=== PATIENT | female | born 1960 | race Caucasian/White ===

== ENCOUNTER 2018-07-28 00:18 | Inpatient (IN) ==
[2018-07-28 02:26] LABS: BASO# 0.03 X1000 (0.0-0.2); BASO% 0.4 % (0.0-0.8); EOS# 0.16 X1000 (0.0-0.7); HEMATOCRIT 40.3 % (37.0-47.0); HEMOGLOBIN 14.1 g/dL (12.0-16.0); LYMPH# 4.33 X1000 (1.2-3.4); LYMPH% 54.2 % (20.5-51.1); MCH 28.2 PG (27-31); MCV 80.6 FL (81-99); MONO# 0.39 X1000 (0.11-0.59); MONO% 4.9 % (1.7-9.3); MPV 11.2 FL (7.4-10.4); NEUT# 3.08 X1000 (1.4-6.5); NEUT% 38.5 % (42.2-75.2); PLT 233 X1000 (130-400); RDW 13.5 % (11.5-14.5); WBC 7.99 X1000 (4.8-10.8)
[2018-07-28 02:41] LABS: PROTIME 11.7 Seconds (11.0-16.0)
[2018-07-28 02:42] LABS: PTT 27.1 Seconds (22.3-41.8)
[2018-07-28 02:51] LABS: INR 0.8
[2018-07-28 02:53] LABS: AGAP 14; ALB/GLOB RATIO 1.5; ALBUMIN 4.4 g/dL (3.5-5.0); ALKALINE PHOSPHATASE 90 U/L (32-104); BUN 13 mg/dL (8-22); CHLORIDE 97 mmol/L (98-107); COSMO 292; CREATININE 0.7 mg/dL (0.5-0.9); ESTIMATED GFR > 60; GLUCOSE 383 mg/dL (70-104); GOT 14 U/L (10-30); GPT 15 U/L (10-36); POTASSIUM 3.9 mmol/L (3.5-5.1); SODIUM 138 mmol/L (136-145); TCO2 27 mmol/L (25-35); TOTAL BILIRUBIN 0.16 mg/dL (0.20-1.00); TOTAL PROTEIN 7.3 g/dL (6.3-8.3)
--- NOTE | 2018-07-28 06:45 | PROVIDER DOCUMENTATION ---
HPI-Cardiac General - General Chief Complaint: Chest Pain Stated Complaint: CHEST PAIN, EDEMA, SOB, TINGLING IN HANDS Time Seen by Provider: 07/28/18 06:26 Source: patient Allergies/Adverse Reactions: Patient Allergies Allergy/AdvReac Type Severity Reaction Status Date / Time No Known Allergies Allergy Verified 04/04/18 14:30 Home Medications: Home Medication List Medication Instructions Recorded Confirmed Last Taken Type ATORVAstatin [Lipitor] 40 mg PO QHS 08/06/17 08/06/17 08/06/17 History Carvedilol [Coreg] 6.25 mg PO BID 08/06/17 08/06/17 08/06/17 History Clopidogrel [Plavix] 75 mg PO DAILY 08/06/17 08/06/17 08/06/17 History LISINOpril [Prinivil] 5 mg PO BID 08/06/17 08/06/17 08/06/17 History Ibuprofen 800 mg PO TID PRN 10 Days #30 tab 04/04/18 Unknown Rx Albuterol Sulfate Inhaler 2 puff INH Q6H PRN PRN #1 inhaler 06/02/18 Unknown Rx [Ventolin Hfa] Hydrocodone/Chlorphen P-Stirex 5 ml PO Q12H PRN PRN #30 ml 06/02/18 Unknown Rx [Tussionex Pennkinetic Susp] Methylprednisolone [Medrol Dosepak] 4 mg PO DIRECTED #1 pkg 06/02/18 Unknown Rx Cyclobenzaprine [Flexeril] 10 mg PO TID #20 tab 07/17/18 Unknown Rx - History of Present Illness-Cardiac Nature of Presenting Problem: 57y/o WF c/o SOB and tingling to arms since yesterday. She relates that these symptoms are similar to when she previously needed cardiac stent. Pt denies any specific chest pain. Location: reports: substernal Quality of Pain: reports: none Severity in ED: mild Onset/Duration: 24 hours ago Timing: still present Context/Activities at Onset: reports: light activity Modifying Factors: improves with: movement Palpitation Quality: N/A History of arrythmia: reports: none Recent use of:: reports: no stimulants Nitro Today/Relief: reports: no nitro taken today Aspirin Treatment Today: reports: no aspirin today Associated Symptoms: reports: shortness of breath Similar Symptoms Previously?: Yes Recently Seen Here or By Another Healthcare Provider: No Review of Systems - Adult - REVIEW OF SYSTEMS - ADULT Constitutional: reports: no symptoms reported, see HPI Eyes: reports: no symptoms reported, see HPI Ears, Nose, Mouth & Throat: reports: no symptoms reported, see HPI Cardiovascular: reports: no symptoms reported, see HPI Respiratory: reports: see HPI, shortness of breath Gastrointestinal: reports: no symptoms reported, see HPI Genitourinary: reports: no symptoms reported, see HPI Musculoskeletal: reports: no symptoms reported, see HPI Integumentary: reports: no symptoms reported, see HPI Neurological: reports: no symptoms reported, see HPI Psychiatric: reports: no symptoms reported, see HPI Endocrine: reports: no symptoms reported, see HPI Hematologic/Lymphatic: reports: no symptoms reported, see HPI Past History - Adult - PAST MEDICAL HISTORY-ADULT Review of Records: reports: Nursing Assessment Review, Medications Reviewed, So cial history reviewed & non-contributory. Major Childhood Illnesses: reports: denies history Cardiovascular: reports: HTN Respiratory: reports: denies history Gastrointestinal: reports: diverticulosis Obstetrical/Gynecological: reports: denies history Genitourinary: reports: denies history Musculoskeletal: reports: denies history Neurological: reports: TIA Endocrine/Immune: reports: Diabetes Other Conditions: reports: denies history - PRIOR SURGERIES/PROCEDURES Surgical/Procedure History: reports: appendectomy, cholecystectomy, hysterectomy , , tonsillectomy, other (breast) - PRIOR HOSPITALIZATIONS Prior Hospitalizations: reports: none - IMMUNIZATION STATUS Childhood Immunizations: See Nurse Assessment Flu Vaccine: See Nurse Assessment - FAMILY HISTORY Family History: reviewed, not pertinent, HTN Physical Exam-General - PHYSICAL EXAM-ADULT Initial Vital Signs Reviewed: Yes - CONSTITUTIONAL General Appearance: appears well, alert, no apparent distress - EYES Eyes: PERRL/EOMI - HEAD, EARS, NOSE, MOUTH & THROAT HENMT: normocephalic/atraumatic, moist mucous membranes - NECK Neck: non-tender, full range of motion, supple, normal inspection - RESPIRATORY Respiratory: chest non-tender, lungs clear, normal breath sounds, no pleuratic chest pain, no respiratory distress, no accessory muscle use - CARDIOVASCULAR Cardiovascular: normal peripheral pulses, regular rate, rhythm, no edema, no gallop, no JVD, no murmur - GASTROINTESTINAL (ABDOMEN) Abdominal Exam: normal bowel sounds, non tender, soft, no organomegaly, no pulsatile mass - LYMPHATIC Lymphatic: no adenopathy - MUSCULOSKELETAL Back Exam: normal inspection, no CVA tenderness, no vertebral tenderness Extremity: normal range of motion, non-tender, normal gait, normal inspection, no calf tenderness, pedal edema, swelling - SKIN Integumentary: normal color, normal turgor - 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9 F Pulse Rate 96 H Respiratory Rate 20 Blood Pressure 179/76 O2 Sat by Pulse Oximetry 100 Laboratory Results - last 24 hr 07/28/18 07/28/18 07/28/18 00:38 00:38 00:38 WBC 7.99 RBC 5.00 Hgb 14.1 Hct 40.3 MCV 80.6 L MCH 28.2 MCHC 35.0 RDW Std Deviation 13.5 Plt Count 233 MPV 11.2 H Immature Gran % (Auto) 0.0 Neut % (Auto) 38.5 L Lymph % (Auto) 54.2 H Bee % (Auto) 4.9 Eos % (Auto) 2.0 Baso % (Auto) 0.4 Immature Gran # (Auto) 0.00 Neut # (Auto) 3.08 Lymph # (Auto) 4.33 H Bee # (Auto) 0.39 Eos # (Auto) 0.16 Baso # (Auto) 0.03 PT INR PTT (Actin FS) Sodium 138 Potassium 3.9 Chloride 97 L Carbon Dioxide 27 Anion Gap 14 BUN 13 Creatinine 0.7 Estimated GFR/1.73 m2 > 60 BUN/Creatinine Ratio 19 Glucose 383 H Calculated Osmolality 292 Calcium 9.0 Total Bilirubin 0.16 L AST 14 ALT 15 Alkaline Phosphatase 90 Troponin T [id number]-[id number] Pept 211 Total Protein 7.3 Albumin 4.4 Globulin 2.9 Albumin/Globulin Ratio 1.5 07/28/18 07/28/18 00:38 00:38 WBC RBC Hgb Hct MCV MCH MCHC RDW Std Deviation Plt Count MPV Immature Gran % (Auto) Neut % (Auto) Lymph % (Auto) Bee % (Auto) Eos % (Auto) Baso % (Auto) Immature Gran # (Auto) Neut # (Auto) Lymph # (Auto) Bee # (Auto) Eos # (Auto) Baso # (Auto) PT 11.7 INR 0.80 PTT (Actin FS) 27.1 Sodium Potassium Chloride Carbon Dioxide Anion Gap BUN Creatinine Estimated GFR/1.73 m2 BUN/Creatinine Ratio Glucose Calculated Osmolality Calcium Total Bilirubin AST ALT Alkaline Phosphatase Troponin T < 0.010 Dmy-T-Bhyuovwsmqs Pept Total Protein Albumin Globulin Albumin/Globulin Ratio Orders Category Date Time Status cxr [CHEST-1 VIEW] [RAD] Stat Exams 07/28/18 01:36 Taken CBC WITH ELECTRONIC DIFF [HEME] Stat Lab 07/28/18 00:38 Completed CK PROFILE [SP CHEM] Stat Lab 07/28/18 06:38 Received COMPREHENSIVE METABOLIC PANEL [CHEM] Stat Lab 07/28/18 00:38 Completed PRO B-NATRIURETIC PEPTIDE Stat Lab 07/28/18 00:38 Completed PT [PROTIME WITH INR] [COAG] Stat Lab 07/28/18 00:38 Completed PTT [COAG] Stat Lab 07/28/18 00:38 Completed TROPONIN T Stat Lab 07/28/18 00:38 Completed TROPONIN T Stat Lab 07/28/18 06:38 Received URINALYSIS [URINALYSIS] Stat Lab 07/28/18 01:35 Uncollected EKG [EKG] Stat Ther 07/28/18 05:52 Ordered Result Diagrams: 07/28/18 00:38 07/28/18 00:38 - CONSULTS/PCP/HOSPITALIST Notification #1 *Consult/PCP/Hospitalist*: Hospitalist Time Discussed: 06:51 Reason/Comments: Dr Quach Consult Disposition: Will see in ED, Admit - CHANGE OF SHIFT REPORT (ED Provider) 1 Time of Transfer: 07:00 Items Pending: Labs, XRAY Results Departure - Departure Date of Disposition Decision: 07/28/18 Time of Disposition Decision: 06:51 DIAGNOSIS: SOB (shortness of breath), Chest pain, atypical Disposition: ADMITTED INPATIENT 09 Certified Medical Emergency: Emergent Condition: Fair Referrals and Follow-Ups: None,PCP [Primary Care Provider] - - Critical Care Note This patient required my direct & personal management of CC.: No Attestation - Physician/ RAIMUNDO Attestation Patient care was provided by Advanced Practice Provider:: No The physician spent face to face time with patient:: Yes Advanced Practice Provider documentation review:: Supervising physician onsite and consulted in the evaluation and care of this patient. The physician did have a face to face encounter with the patient.
--- NOTE | 2018-07-28 07:09 | Diag Imaging Result Doc PS360 ---
EXAM: CHEST-1 VIEW HISTORY: chest pain TECHNIQUE: PA chest single view COMPARISON: 06/02/2018 FINDINGS: The lungs are well expanded. The heart is not enlarged. The vessels are not distended. There are no infiltrates. No effusion identified. IMPRESSION: Negative exam. Electronically signed by Eris Valera 07/28/2018 7:07 AM
[2018-07-28] MEDS ORDERED: ZOFRAN IV PRN (08:16)
[2018-07-28] MEDS ORDERED: MORPHINE IV PRN (08:16)
[2018-07-28] MEDS ORDERED: NITROGLYCERIN SL PRN (08:16)
[2018-07-28 08:51] LABS: URINE SOURCE CLEAN CATCH
[2018-07-28 08:59] LABS: BILIRUBIN URINE NEGATIVE (NEGATIVE); BLOOD URINE NEGATIVE (NEGATIVE); COLOR YELLOW; GLUCOSE URINE >1000 mg/dL (NEGATIVE); KETONE URINE NEGATIVE (NEGATIVE); LEUKOCYTES URINE NEGATIVE (NEGATIVE); NITRITE URINE NEGATIVE (NEGATIVE); PROTEIN URINE TRACE mg/dL (NEGATIVE); SP GRAVITY URINE 1.027; TURBIDITY URINE CLEAR (CLEAR); UROBILINOGEN URINE NORMAL (NORMAL)
[2018-07-28 09:03] LABS: UR EPITHELIAL CELLS <10 /HPF (<10); URINE BACTERIA NEGATIVE /HPF; URINE RBC <10 /HPF (<10); URINE WBC <10 /HPF (<10)
[2018-07-28] MEDS ORDERED: PROTONIX PO ONE (10:40)
[2018-07-28] MEDS ORDERED: NORVASC PO SCH (10:45)
[2018-07-28] MEDS ORDERED: PLAVIX PO SCH (10:45)
[2018-07-28] MEDS: LOVENOX SUBQ SCH (11:34)
[2018-07-28] MEDS: ASPIRIN PO SCH (11:34)
--- NOTE | 2018-07-28 11:39 | HISTORY AND PHYSICAL ---
PRIMARY CARE PROVIDER: MINAL Hess out of [place], [place]. CHIEF COMPLAINT: Chest pain and shortness of breath. HISTORY OF PRESENT ILLNESS: Ms. Tova Hendricks is a 57-year-old female with a medical history of diabetes mellitus type 2, hypertension, TIAs, and coronary artery disease with 1 cardiac stent back in 2017 who comes in with complaints of the last 2 weeks having shortness of breath, fatigue, and sweating while doing small activities such as washing dishes. She states that she can rest and the symptoms resolve. It has been happening about 2 or 3 times per day. More active cleaning can cause her to have chest pain spells that radiates down the left arm and into the neck causing numbness, tingling, and lightheadedness. Denies nausea with it but also has shortness of breath. Then, over the last 3 days she has been having what she describes as more swelling in the lower extremities with some tingling and she feels like this is all heart related. She denies coughing up anything, having any fever or chills, and denies nausea, vomiting, and diarrhea. We will admit to the medical floor and continue her workup. PAST MEDICAL HISTORY: 1. Diabetes mellitus type 2. 2. Hypertension. 3. TIA in 2012 and again in 2013. 4. Diverticulosis. 5. Coronary artery disease without myocardial infarction but has 1 cardiac stent placed at [facility] in 2017. 6. Hyperlipidemia. 7. Diabetic neuropathy. 8. Diabetic retinopathy. 9. GERD. 10.Morbid obesity. BMI 36.9. SURGICAL HISTORY: 1. Appendectomy. 2. Cholecystectomy. 3. Tonsillectomy and adenoidectomy. 4. Breast biopsy. 5. section. 6. Hysterectomy. 7. Left shoulder surgery. 8. Cardiac stent at [facility] in 2017. SOCIAL HISTORY: Denies tobacco, alcohol, or illicit drug use. She lives at home with her . She has 2 adult children with 3 grandchildren and she is disabled. FAMILY HISTORY: Mother had coronary disease, diabetes, osteoporosis, and COPD. Father had a MVA that he at the age of 26 from. She has 3 siblings, 1 healthy brother, another brother with coronary disease and diabetes, and a sister with diabetes, hyperlipidemia, and skin cancers. ALLERGIES: No known drug allergies. HOME MEDICATIONS: 1. Lipitor 10 mg p.o. nightly. 2. Amitriptyline 50 mg p.o. nightly. She states that she takes that for her diabetic neuropathy. 3. Metformin 1,000 mg p.o. twice daily. 4. Amlodipine 10 mg p.o. daily. 5. Plavix 75 mg p.o. daily. 6. Zantac 150 mg p.o. twice daily. 7. She states that she has p.o. nitroglycerin tabs when she needs them. She never took any for these chest pain episodes though. REVIEW OF SYSTEMS: A 14 point review of systems are completed and all are negative except for those mentioned above in the HPI. PHYSICAL EXAMINATION: VITAL SIGNS: Temperature is 97.9, heart rate 84, respiratory rate 20, blood pressure 153/78, O2 saturation 100% on room air, 5 foot 4 inches tall and 215 pounds. BMI is 36.9. GENERAL: Ms. Tova Hendricks is a 57-year-old female. She is sitting up in bed comfortable and has no acute distress. She is able to answer questions appropriately. HEENT: Atraumatic, normocephalic. Pupils are equal, round, and reactive to light. Extraocular movements are intact. Mucous membranes are moist. NECK: Trachea is midline. CARDIOVASCULAR: S1, S2. Regular rate and rhythm. No rubs, gallops, or murmurs. She has trace lower extremity edema and +2 dorsalis and radial pulses. Negative for JVD or carotid bruits. PULMONARY: Clear to auscultate bilateral breath sounds. No accessory muscle use or work of breathing noted. GI: Soft, nontender, and nondistended. Positive bowel sounds times 4. CHEST: No tenderness in the sternal wall as well. EXTREMITIES: Moves all extremities equally with full range of motion. NEURO: Alert and oriented times 3. Follows commands. Numbness and tingling in bilateral lower extremities and in the left arm. SKIN: Warm, dry, and intact. LABORATORY DATA: White blood cells 7,000, hemoglobin 14, hematocrit 40, and platelet count 233. INR is 0.80. PTT is 27.1. Sodium is 138, potassium 3.9, BUN 13, creatinine 0.7, and glucose 383. Hemoglobin A1c is 12. Calcium is 9, bilirubin 0.16, AST 14, and ALT 15. CK is 55. Troponin is less than 0.01 two times. CRP is 3.64. ProBNP is 211. Albumin is 4.4. Urinalysis: Trace protein and over 1,000 glucose. IMAGING: Chest x-ray: Negative exam. EKG: Not uploaded yet. No reported ST changes. ASSESSMENT AND PLAN: 1. Chest pain with history of coronary artery disease and stent, mostly with activity. She has dizziness with it, left arm numbness and tingling with it, and shortness of breath with it. She has also noticed more swelling in her lower extremities and this has been going on for 2 weeks. Two sets of cardiac enzymes are negative so far. She is chest pain free at this time. We will continue with a cardiac workup, consult Dr. Chahal, and schedule her for a stress test in the morning. 2. Uncontrolled diabetes mellitus type 2. Her hemoglobin A1c is 12. We will start her on insulin here. Her blood glucose when she presented was over 300. Diabetic diet. 3. Hypertension. Continue her antihypertensives which is Norvasc. 4. Diabetic neuropathy and also diabetic retinopathy but she is on amitriptyline for the neuropathy. 5. Coronary artery disease with hyperlipidemia. She is on atorvastatin and we will continue it. 6. History of transient ischemic attacks. 7. Deep vein thrombosis prophylaxis with Lovenox. 8. Gastroesophageal reflux disease. We will do Protonix p.o. Dictated by MINAL Randall for Dank Ledbetter MD cc: MINAL Randall MD
[2018-07-28] MEDS: HUMULIN R SUBQ SCH ×3 (12:04→21:14)
--- NOTE | 2018-07-28 14:56 | CONSULTATION ---
DATE OF CONSULTATION: 07/28/2018 CARDIOLOGY CONSULTATION: IMPRESSION: 1. Accelerated angina. 2. Atherosclerotic coronary disease with previous coronary angioplasty/stenting approximately 3 years ago at [facility]. 3. Type 2 diabetes mellitus requiring insulin. 4. Hypertension. 5. Previous transient ischemic attack. 6. Hyperlipidemia. 7. Obesity. RECOMMENDATIONS: 1. Telemetry observation. 2. Follow up cardiac enzymes. 3. Echocardiography. 4. Given clinical presentation, favor pursuit of cardiac catheterization and selective coronary angiography. The rationale for this approach was discussed with the patient including potential hazards as well as open potential need for transfer to [facility] and eventual needed a coronary angioplasty/stent. She was advised of these and wished to proceed. 5. Incorporate beta mica to patient's regimen. 6. Ultimately would like to incorporate angiotensin receptor blocking agent or angiotensin converting enzyme inhibitor into the patient's regimen given her history of diabetes. HISTORY: This 57-year-old white female with past history of previous coronary angioplasty/stenting approximately 3 years ago at [facility], type 2 diabetes mellitus requiring insulin for control with associated peripheral neuropathy and retinopathy, hypertension, previous transient ischemic attack, and obesity was admitted to the emergency room for evaluation of a 2-week history of exertional shortness of breath and chest heaviness. She had similar symptoms back 3 years ago when she had coronary angioplasty/stenting. She still has had some occasional exertional chest heaviness since then. However, for the past several weeks tendency for exertional chest heaviness has increased and is accompanied by exertional shortness of breath. She has had some peripheral swelling in the ankles of late as well. There has been no orthopnea. With her chest discomfort, she may have some tingling in her left arm and neck. PAST MEDICAL HISTORY: 1. Atherosclerotic coronary disease with previous coronary angioplasty/stenting approximately 3 years ago. 2. Hypertension. 3. Diabetes mellitus type 2 requiring insulin for control of associated peripheral neuropathy and diabetic retinopathy. 4. Previous transient ischemic attack. 5. Diverticular disease of the colon. 6. Hyperlipidemia. 7. Gastroesophageal reflux disease. 8. Obesity. PAST SURGICAL HISTORY: Includes appendectomy, cholecystectomy, tonsillectomy and adenectomy, breast biopsy, section, hysterectomy, and unspecified left shoulder surgery. ALLERGIES: She has no known drug allergies. MEDICATIONS PRIOR TO ADMISSION: As listed. SOCIAL HISTORY: She is and lives at home. She does not smoke nor use alcohol. FAMILY HISTORY: Positive for coronary disease and diabetes mellitus. REVIEW OF SYSTEMS: Pulmonary: Negative beyond history present illness. Constitutional: Negative beyond history of present illness. Gastrointestinal: Negative beyond history of present illness. Remainder of review of systems negative beyond history of present illness with 14 total systems reviewed. PHYSICAL EXAMINATION: General: This is an obese, middle-aged white female in no distress. Vital signs: Blood pressure 151/72, heart rate 79 and regular, oxygen saturation 100% on room air. HEENT: Extraocular movements appear intact. Mucous membranes moist. Neck: Supple. Without carotid bruit. mild jugular distention is suggested on inspection of neck veins. Chest: Clear to auscultation. Cardiac Exam: Reveals a regular rate and rhythm without appreciable murmur or gallop. Abdomen: Soft, nontender. Bowel sounds are normal. Extremities: Demonstrate trace ankle edema bilaterally. Neurologic: Exam reveals her to be alert and fully oriented. Speech is fluent. She moves all 4 extremities equally well. Skin: Warm and dry. Psychiatric: Reveals her mood to be appropriate. DATA: A 12 lead EKG demonstrates normal sinus rhythm and ST and T-wave abnormality, consider inferolateral ischemia. LABORATORY DATA: Includes white blood cell count 7.9, hematocrit 40.3, hemoglobin 14.1, platelet count 233,000. Pro time 11.7, INR 0.8, PTT 27.1. Sodium 138, potassium 3.9, chloride 97, carbon dioxide 27, BUN 13, creatinine 0.7, glucose 383 troponin T less than 0.01 with subsequent troponin T' less than 0.01 and less than 0.01. CPK 58. cc: Aris Chahal MD
[2018-07-28] MEDS ORDERED: LYRICA PO ONE (16:34)
--- NOTE | 2018-07-28 16:58 | PROGRESS NOTE ---
DATE: 07/28/2018 SUBJECTIVE: The patient came in with chest pain. She has a history of CAD status post stents about 3 years ago. She came in with similar chest pain today. She was admitted, seen by Cardiology and nurse practitioner. Workup was negative. Initially plans were made for Lexiscan but Dr. Chahal is going to progress with left heart catheterization tomorrow and pursue risk stratification subsequently. Curiously she is only on 10 of Eliquis, not an effective dose for her but in any case, we will do serial enzymes, echocardiogram, cardiology has been consulted. Plan for left heart catheterization and we will follow. cc: Dank Ledbetter MD
[2018-07-28] MEDS ORDERED: LIPITOR PO SCH (21:00)
[2018-07-28] MEDS: ELAVIL PO SCH (21:02)
[2018-07-28] MEDS: COREG PO SCH (21:02)
[2018-07-28] MEDS: LIPITOR PO SCH (21:14)
[2018-07-29] MEDS: HUMULIN R SUBQ SCH ×4 (06:24→21:39)
[2018-07-29] MEDS ORDERED: PRILOSEC PO SCH (07:00)
[2018-07-29] MEDS ORDERED: HEPARIN 1000 UNITS/NS 2,000 UNIT/1,000 ML IV.SOLN ONE (07:20)
--- NOTE | 2018-07-29 07:53 | EKG Report ---
Test Performed on : 07/29/2018 07:33:28 AM Test Reason : chest pain Blood Pressure : / mmHG Vent. Rate : 076 BPM Atrial Rate : 076 BPM P-R Int : 180 ms QRS Dur : 088 ms QT Int : 402 ms P-R-T Axes : 053 034 085 degrees QTc Int : 452 ms Normal sinus rhythm. Nonspecific ST and T wave abnormality Abnormal ECG When compared with ECG of 28-JUL-2018 00:27, (Unconfirmed) Nonspecific T wave abnormality, improved in Anterolateral leads Confirmed by Melinda CONNOR, [place] ([id number]) on 07/29/2018 9:21:28 AM
[2018-07-29 08:01] LABS: BASO# 0.02 X1000 (0.0-0.2); BASO% 0.3 % (0.0-0.8); EOS# 0.24 X1000 (0.0-0.7); HEMATOCRIT 37.6 % (37.0-47.0); HEMOGLOBIN 12.8 g/dL (12.0-16.0); LYMPH% 45.2 % (20.5-51.1); MCH 28.3 PG (27-31); MONO# 0.56 X1000 (0.11-0.59); MPV 10.5 FL (7.4-10.4); NEUT# 3.55 X1000 (1.4-6.5); NEUT% 44.5 % (42.2-75.2); PLT 212 X1000 (130-400); RBC 4.53 XMIL (4.2-5.4); RDW 13.6 % (11.5-14.5); WBC 7.97 X1000 (4.8-10.8)
[2018-07-29 08:20] LABS: INR 0.89; PROTIME 12.8 Seconds (11.0-16.0)
[2018-07-29 08:29] LABS: AGAP 8; ALB/GLOB RATIO 1.4; ALBUMIN 3.6 g/dL (3.5-5.0); ALKALINE PHOSPHATASE 69 U/L (32-104); BUN 10 mg/dL (8-22); CHLORIDE 104 mmol/L (98-107); COSMO 286; CREATININE 0.6 mg/dL (0.5-0.9); ESTIMATED GFR > 60; GLUCOSE 229 mg/dL (70-104); GOT 13 U/L (10-30); GPT 11 U/L (10-36); MAGNESIUM 1.3 mg/dL (1.5-2.7); POTASSIUM 4.2 mmol/L (3.5-5.1); SODIUM 140 mmol/L (136-145); TCO2 28 mmol/L (25-35); TOTAL BILIRUBIN 0.21 mg/dL (0.20-1.00); TOTAL PROTEIN 6.2 g/dL (6.3-8.3)
--- NOTE | 2018-07-29 08:33 | EKG Report ---
Test Performed on : 07/28/2018 00:27:24 AM Test Reason : SOB Blood Pressure : / mmHG Vent. Rate : 087 BPM Atrial Rate : 087 BPM P-R Int : 160 ms QRS Dur : 082 ms QT Int : 390 ms P-R-T Axes : 056 040 -29 degrees QTc Int : 469 ms Normal sinus rhythm. ST & T wave abnormality, consider inferior ischemia Prolonged QT Abnormal ECG When compared with ECG of 06-AUG-2017 20:45, T wave inversion now evident in Inferior leads Nonspecific T wave abnormality, worse in Anterolateral leads Unconfirmed Result
[2018-07-29] MEDS: COREG PO SCH ×2 (09:30→20:10)
[2018-07-29] MEDS: ASPIRIN PO SCH (11:34)
[2018-07-29] MEDS: LOVENOX SUBQ SCH (11:35)
[2018-07-29] MEDS: NORVASC PO SCH (11:35)
[2018-07-29] MEDS: PROTONIX PO SCH (11:37)
[2018-07-29] MEDS ORDERED: VERSED ONE (12:10)
[2018-07-29] MEDS ORDERED: CLAVE TWINSITE 32 IN 11959 ONE (12:10)
[2018-07-29] MEDS ORDERED: ANESTHESIA PB SET 88 IN 5742 ONE (12:10)
[2018-07-29] MEDS ORDERED: NS 1,000 ML ONE (12:10)
[2018-07-29] MEDS ORDERED: MORPHINE ONE (12:10)
[2018-07-29] MEDS ORDERED: BLISTEX MEDICATED BERRY LIP BALM TOP PRN (14:51)
--- NOTE | 2018-07-29 15:15 | EKG Report ---
Test Performed on : 07/29/2018 2:56:15 PM Test Reason : Post heart cath Blood Pressure : / mmHG Vent. Rate : 073 BPM Atrial Rate : 073 BPM P-R Int : 178 ms QRS Dur : 076 ms QT Int : 414 ms P-R-T Axes : 059 042 028 degrees QTc Int : 456 ms Normal sinus rhythm. Cannot rule out Anterior infarct , age undetermined Abnormal ECG When compared with ECG of 29-JUL-2018 07:33, Nonspecific T wave abnormality, improved in Lateral leads Confirmed by Melinda CONNOR, [place] ([id number]) on 07/30/2018 8:37:10 AM
--- NOTE | 2018-07-29 18:01 | PROGRESS NOTE ---
DATE: 07/29/2018 SUBJECTIVE: The patient continues without chest discomfort or dyspnea. Coronary angiography earlier today demonstrated what appeared to be a chronically occluded stent in proximal to mid left anterior descending coronary with established collaterals. There was significant atherosclerotic disease in a smaller branch of the distal right coronary artery. Left ventricular ejection fraction normal. Medical management felt appropriate. OBJECTIVE: Vital Signs: Blood pressure 150/67, heart rate 72, oxygen saturation 100%. Chest: Clear to auscultation. Cardiac: Reveals a regular rate and rhythm without appreciable murmur or gallop. There is no evidence of peripheral edema. LABORATORY DATA: Includes sodium 140, potassium 4.2, chloride 104, carbon dioxide 28, BUN 10, creatinine 0.6. Triglycerides 139, total cholesterol 133, LDL cholesterol 81, HDL cholesterol 46. Pro B-natriuretic peptide level 268. IMPRESSION: 1. Angina. 2. Atherosclerotic coronary disease. The patient is status post previous coronary angioplasty/stenting of left anterior descending coronary. Coronary angiography this admission demonstrates chronically occluded stent left anterior descending coronary with established collaterals. Medical management appropriate. 3. Type 2 diabetes mellitus requiring insulin. 4. Hypertension. 5. Previous transient ischemic attack. 6. Hyperlipidemia. 7. Obesity. RECOMMENDATIONS: 1. Medical management of the patient's coronary atherosclerosis. 2. Increase carvedilol as tolerated. 3. Add losartan low-dose. 4. Continue atorvastatin. 5. If the patient continues clinically stable, it would be reasonable for her to be discharged in a.m. tomorrow. She can follow up with me as an outpatient in 3 to 4 weeks. cc: Aris Chahal MD
[2018-07-29] MEDS: TYLENOL PO PRN (18:10)
--- NOTE | 2018-07-29 18:20 | ECHO REPORT ---
ORDER DATE: 07/29/2018 INDICATION: A 57-year-old female with angina, coronary heart disease. M-MODE MEASUREMENTS: Left ventricle end diastole: 4.2. Left ventricle end systole: 2.9. Posterior wall: 0.9. Interventricular septum: 1.0. Left atrium: 4.1. Aortic diameter. 2.8. SUMMARY OF 2-DIMENSIONAL IMAGIN. The study shows that the left ventricular systolic function is normal. No definite wall motion abnormality noted. 2. Ejection fraction 55% to 60%. 3. Intraprocedural contrast was given in the form of Optison to optimize the visualization of the endocardium. 4. There was good contractility of all of the segments of the left ventricle. 5. The atria appear to be normal. The right side appears to be normal. 6. The mitral valve looks grossly normal. Color flow mapping unremarkable. 7. Pulsed wave Doppler of mitral inflow is normal. 8. Tissue Doppler of septal and lateral mitral annulus averages 7 cm. 9. There is no diastolic dysfunction. 10.The aortic valve appears to be grossly normal. 11.The pulmonic valve looks grossly normal. The tricuspid valve also appears to be grossly normal. Color flow mapping unremarkable. Pulmonary pressure estimated at 24 to 29 mmHg. 12.No pericardial effusion. No mass, no thrombus. Clinical correlation recommended. cc: MD Aris Amado MD
[2018-07-29] MEDS: ELAVIL PO SCH (20:10)
[2018-07-29] MEDS: LIPITOR PO SCH (20:10)
--- NOTE | 2018-07-29 20:13 | PROGRESS NOTE ---
DATE: 07/29/2018 SUBJECTIVE: Patient has no complaints. She was seen postop after her cardiac cath and seems to be doing okay. OBJECTIVE: Vital Signs: Blood pressure is 150/67, heart rate is 72, respiratory rate is 17, temperature is 97.6 degrees, and oxygen saturation 100% on room air. Cardiovascular: Regular rate and rhythm. Pulmonary: Bilateral breath sounds, clear to auscultation. GI: Soft, nontender, nondistended. Bowel sounds are positive. LABORATORY DATA: White count is 7, hemoglobin and hematocrit 12 and 37, platelets 212,000. Basic was normal. PROBLEM LIST: Chest pain. She had a catheterization today that showed an occluded stent to the left anterior descending, and recommended medical management. She is on Coreg, losartan, Lipitor, and plan is to discharge tomorrow if stable on current medications, in addition to her other medications. Her ejection fraction, I think was intact, so we will continue to follow and anticipate discharge tomorrow. cc: Dank Ledbetter MD
[2018-07-30] MEDS: PROTONIX PO SCH ×2 (05:33→06:15)
[2018-07-30] MEDS: TYLENOL PO PRN (05:33)
[2018-07-30 05:46] LABS: BASO# 0.03 X1000 (0.0-0.2); BASO% 0.4 % (0.0-0.8); EOS# 0.22 X1000 (0.0-0.7); EOS% 3.1 % (0.0-10.0); HEMATOCRIT 38.3 % (37.0-47.0); HEMOGLOBIN 13.1 g/dL (12.0-16.0); LYMPH# 3.02 X1000 (1.2-3.4); LYMPH% 42.7 % (20.5-51.1); MCH 28.1 PG (27-31); MCHC 34.2 g/dL (33-37); MCV 82.2 FL (81-99); MONO# 0.42 X1000 (0.11-0.59); MONO% 5.9 % (1.7-9.3); MPV 10.7 FL (7.4-10.4); NEUT# 3.38 X1000 (1.4-6.5); NEUT% 47.9 % (42.2-75.2); PLT 224 X1000 (130-400); RBC 4.66 XMIL (4.2-5.4); RDW 13.7 % (11.5-14.5); WBC 7.07 X1000 (4.8-10.8)
[2018-07-30] MEDS: HUMULIN R SUBQ SCH ×2 (06:10→10:40)
[2018-07-30] MEDS: NORVASC PO SCH (08:37)
[2018-07-30] MEDS: LOVENOX SUBQ SCH (08:37)
[2018-07-30] MEDS: ASPIRIN PO SCH (08:37)
[2018-07-30] MEDS: COREG PO SCH (08:38)
[2018-07-30] MEDS ORDERED: COZAAR PO SCH (09:00)
[2018-07-30] MEDS ORDERED: MAGNESIUM SULFATE 2 GM/S.W.I. 2 GM/50 ML IVPB IV ONE (10:18)
[2018-07-30 11:59] VITALS: BP 121/60
--- NOTE | 2018-07-30 16:07 | DISCHARGE SUMMARY ---
ADMISSION DATE: 07/28/2018 DISCHARGE DATE: 07/30/2018 DISCHARGE DIAGNOSES: 1. Chest pain. 2. Coronary artery disease. 3. Diabetes. 4. Hypertension. 5. Dyslipidemia. 6. Gastroesophageal reflux disease. ADMISSION DIAGNOSES: 1. Chest pain. 2. Coronary artery disease. 3. Diabetes. 4. Hypertension. 5. Dyslipidemia. 6. Gastroesophageal reflux disease. PROCEDURE: Cardiac catheterization. CONSULTATION: Dr. Chahal, cardiology. HOSPITAL COURSE: Briefly this is a 57-year-old female with CAD status post stent in 2017 but she has been kind of lost to follow up. She has not followed up with anybody it sounds like and she only takes Norvasc and Plavix but she came in with chest pain similar to what she had previously. Dr. Wright was consulted. Initial plans were made for a perfusion study but Dr. Wright felt cardiac cath would be more revealing. Additionally, she has not really had clear care for 2 years. EF is 55 to 60 percent. The patient is overall stable. Her cardiac cath per Dr. Chahal showed I think an occluded stent to her LAD, but overall she improved. He just recommended medical management. She was placed on Coreg, losartan. Her Lipitor was increased. On the day of discharge she is doing well. No major issues post catheterization. Her labs look stable. She is not anemic. No white count. Her Magnesium is a bit low at 1.4 so we went ahead and gave her some magnesium prior to discharge on probably give her some magnesium to go out on. Her sugars are not well controlled and her A1c is 12. She is on metformin. I think I am going to add Januvia to her regimen and see how she does. DISPOSITION: 1. I think she is stable for discharge today. That is our plan. 2. Follow up with PCP, Dr. Ana Dunaway for diabetes management. 3. Follow up with Dr. Wright for cardiac management. 4. This is a 32 minute discharge. cc: MD Ana Campa MD
--- NOTE | 2018-07-31 15:55 | CARDIAC CATH REPORT ---
DATE OF PROCEDURE: 07/29/2018 PROCEDURE PERFORMED: Left heart catheterization with selective coronary angiography. ENTRY SITE: Right femoral artery. CATHETERS USED: A 5-Palauan JL4, 3DRC, and angled pigtail. TECHNIQUE: After intravenous sedation with morphine and Versed, local anesthesia with lidocaine was applied over the right femoral artery. Arterial access was established with placement of a 5- [place] sheath in the right femoral artery using a modified Seldinger technique. Selective coronary angiography was performed, followed by left heart catheterization and left ventriculography. Upon completion of the procedure, arterial sheath was removed from the right femoral artery and hemostasis facilitated with manual pressure. The patient tolerated the procedure without apparent complications. FINDINGS OF HEMODYNAMICS: Aortic pressure 170/56 with a mean of 106, left ventricular pressure 175 over EDP of 18. Comments: On hemodynamics, there is no significant gradient across the aortic valve demonstrated on pullback from the left ventricle. ANGIOGRAPHY: 1. Left ventriculogram. The left ventricle is of normal size without regional wall abnormality evident on KENNY projection. Estimated left ventricular ejection fraction approximately 55-60%. There is no significant mitral regurgitation. 2. Left main coronary artery. The left main coronary artery is free of significant coronary stenosis. 3. Left anterior descending coronary artery. Left anterior descending coronary artery gives rise to a large 1st diagonal branch proximally after which the left anterior descending coronary artery demonstrates a stented region which is occluded in the proximal region of the stent. There are some bridging homocollaterals from the proximal left anterior descending coronary artery to the mid left anterior descending coronary artery. The distal left anterior descending coronary artery also receives [id number] collaterals. Occlusion in left anterior descending coronary artery appears to be chronic. The proximal large 1st diagonal branch demonstrates mild (20-30%) proximal narrowing. 4. Left circumflex coronary artery. The left circumflex coronary artery gives rise to a large 1st obtuse marginal and a tiny 2nd obtuse marginal, and then continues as a posterolateral branch. The very distal left circumflex coronary artery demonstrates moderate focal atherosclerotic narrowing. 5. Right coronary artery. The dominant right coronary artery demonstrates 2 tandem posterior descending arteries. The more distal arising posterior descending artery is small caliber and demonstrates severe (80%) atherosclerotic narrowing after the proximal 1/3 of the vessel. CONCLUSIONS: 1. Normal left ventricular systolic function without regional wall abnormality evident on KENNY projection. 2. Elevated left ventricular end-diastolic pressure of 18 mmHg. 3. Right dominant coronary anatomy as described with a chronically occluded stent in the proximal to mid left anterior descending coronary artery with well-established collaterals, mild stenosis proximally in the large 1st diagonal branch, moderate atherosclerotic disease in very distal left circumflex coronary artery, and severe atherosclerotic narrowing in a small distal branch of the right coronary artery. RECOMMENDATIONS: 1. Medical management of patient's coronary atherosclerosis recommended. 2. Continue efforts at coronary risk factor modification. cc: Aris Chahal MD
== END 2018-07-30 13:17 | disposition home or self-care (01) | DRG 287 ==
LOC: ED 00:18 → 3N 08:59 → 3S 07-29 14:37
PROVIDERS: ATTEND Internal Medicine
CPT/HCPCS: 71010; 71045; 80053; 80061; 81001; 82550; 82565; 82948; 83036; 83721; 83735; 83880; 84484; 85025; 85610; 85730; 86140; 93005; 93010; 93306; 93458; 99285; A9270; C8929; J1644; J1650; J2250; J2270; J3475; J7030; Q9957; Q9967; XXXXX